=== PATIENT | male | born 1995 | race Hispanic/Latino ===

== ENCOUNTER 2022-06-16 14:22 | Emergency (ER) | payer OTHER ==
[~2022-06-16] VITALS: Ht 170.2 cm; Wt 82.7 kg
[2022-06-16 14:24] VITALS: BP 123/86
[2022-06-16] MEDS ORDERED: TETRACAINE 0.5% OPHTH SOLN 4ML OS ONE (15:10)
[2022-06-16] MEDS ORDERED: FLUORESCEIN OPHTH 1MG STRIP OS ONE (15:10)
== END 2022-06-16 16:04 | disposition home or self-care (01) ==
LOC: M ED 14:22
DX: S05.12XA Contusion of eyeball and orbital tissues, left eye, initial encounter (principal); W22.8XXA Striking against or struck by other objects, initial encounter; F12.10 Cannabis abuse, uncomplicated; Y92.9 Unspecified place or not applicable; Y93.89 Activity, other specified; Y99.0 Civilian activity done for income or pay

== ENCOUNTER 2022-06-18 03:23 | Emergency (ER) | payer OTHER ==
[~2022-06-18] VITALS: Ht 170.2 cm; Wt 82.7 kg
[2022-06-18 03:23] VITALS: BP 134/73
[2022-06-18] MEDS ORDERED: BENZ200C70 PO (11:38)
[2022-06-18] MEDS ORDERED: AMOX875T2 PO (11:38)
[2022-06-18] MEDS ORDERED: VENTAER INH (11:38)
[2022-06-18] MEDS ORDERED: ALBU2.5V10 NEB (17:46)
== END 2022-06-18 04:59 | disposition left against medical advice (07) ==
LOC: M ED 03:23
DX: Z53.21 Procedure and treatment not carried out due to patient leaving prior to being seen by health care provider (principal)

== ENCOUNTER 2022-06-18 09:24 | Emergency (ER) | payer OTHER ==
[~2022-06-18] VITALS: Ht 170.2 cm; Wt 77.2 kg
[2022-06-18 09:25] VITALS: BP 115/78
[2022-06-18 10:26] LABS: RSV AMPLIFICATION NEGATIVE (NEGATIVE)
[2022-06-18] MEDS ORDERED: AMOX875T2 PO (11:38)
[2022-06-18] MEDS ORDERED: VENTAER INH (11:38)
[2022-06-18] MEDS ORDERED: BENZ200C70 PO (11:38)
[2022-06-18] MEDS ORDERED: ALBU2.5V10 NEB (17:46)
== END 2022-06-18 11:57 | disposition home or self-care (01) ==
LOC: M ED 09:24
DX: H66.91 Otitis media, unspecified, right ear (principal); J45.909 Unspecified asthma, uncomplicated; F12.10 Cannabis abuse, uncomplicated; Z79.51 Long term (current) use of inhaled steroids; Z79.2 Long term (current) use of antibiotics; Z79.899 Other long term (current) drug therapy

== ENCOUNTER 2022-09-29 18:31 | Emergency (ER) | payer OTHER ==
[~2022-09-29] VITALS: Ht 172.7 cm; Wt 79.5 kg
[~2022-09-29 18:31] MED LIST: ALBU2.5V10 NEB; AMOX875T2 PO; BENZ200C70 PO; VENTAER INH
[2022-09-29] MEDS ORDERED: VENTAER INH (19:47)
[2022-09-29] MEDS ORDERED: ALBU2.5V10 NEB (19:47)
[2022-09-29 20:52] VITALS: BP 129/83
== END 2022-09-29 20:59 | disposition home or self-care (01) ==
LOC: M ED 18:31
DX: S53.402A Unspecified sprain of left elbow, initial encounter (principal); F12.10 Cannabis abuse, uncomplicated; J45.909 Unspecified asthma, uncomplicated; Z79.52 Long term (current) use of systemic steroids; Z76.0 Encounter for issue of repeat prescription; Y93.75 Activity, martial arts; Z79.899 Other long term (current) drug therapy

== ENCOUNTER 2023-01-07 11:07 | Emergency (ER) | payer OTHER ==
[~2023-01-07] VITALS: Ht 172.7 cm; Wt 71.2 kg
[2023-01-07 12:41] VITALS: BP 128/80; TEMP 97.7; O2SAT 100
== END 2023-01-07 13:30 | disposition home or self-care (01) ==
LOC: M ED 11:07
DX: K42.9 Umbilical hernia without obstruction or gangrene (principal); F10.10 Alcohol abuse, uncomplicated; Z79.52 Long term (current) use of systemic steroids; Z79.2 Long term (current) use of antibiotics